=== PATIENT | female | born 1970 | race Two or more races ===

== ENCOUNTER 2016-12-10 13:36 | Outpatient (CLI) | payer BC | END 2016-12-10 23:59 | disposition home or self-care (01) | LOC: RAD 13:36 | PROVIDERS: ATTEND Family Medicine | DX: R20.0 Anesthesia of skin (principal) | CPT/HCPCS: 70450-TC ==

== ENCOUNTER 2017-08-09 14:09 | Outpatient (CLI) | payer BC | END 2017-08-09 23:59 | disposition home or self-care (01) | LOC: LAB 14:09 | PROVIDERS: ATTEND Family Medicine | DX: Z12.4 Encounter for screening for malignant neoplasm of cervix (principal); Z11.3 Encounter for screening for infections with a predominantly sexual mode of transmission | CPT/HCPCS: 36415; 82088; 87491; 87591; 88142 ==

== ENCOUNTER 2018-12-04 09:07 | Outpatient (CLI) | payer BC ==
[2018-12-04] MEDS ORDERED: GADODIAMIDE 5 MMOL/10 ML VIAL IJ ONE (09:08)
== END 2018-12-04 23:59 | disposition home or self-care (01) ==
LOC: MRI 09:07
PROVIDERS: ATTEND Family Medicine
DX: D32.0 Benign neoplasm of cerebral meninges (principal); R20.9 Unspecified disturbances of skin sensation
CPT/HCPCS: 70553-TC; A9579

== ENCOUNTER 2019-10-21 10:52 | Outpatient (CLI) | payer BC ==
[2019-10-21] MEDS ORDERED: GADOTERIDOL 279.3 MG/ML VIAL IV ONE (10:53)
[2019-10-21 14:37] LABS: CREATININE 0.8 mg/dL (0.6-1.3)
== END 2019-10-21 23:59 | disposition home or self-care (01) ==
LOC: MRI 10:52
PROVIDERS: ATTEND Family Medicine
DX: R29.6 Repeated falls (principal); G93.9 Disorder of brain, unspecified
CPT/HCPCS: 36415; 70553-TC; 72148-TC; 82565-TC; 84520-TC; A9579

== ENCOUNTER 2020-03-28 11:09 | Outpatient (CLI) | payer BC ==
[2020-03-28 12:55] LABS: ALBUMIN 3.6 g/dL (3.4-5.0); BILIRUBIN,TOTAL 0.7 mg/dL (0.2-1.0); CALCIUM, SERUM 8.6 mg/dL (8.5-10.1); CREATININE 0.7 mg/dL (0.6-1.3); POTASSIUM 3.3 mmol/L (3.5-5.1); TOTAL PROTEIN, SERUM 7.2 g/dL (6.4-8.2)
[2020-03-28 13:27] LABS: BASOPHILS % (AUTO) 0.8 % (0.0-2.0); HEMATOCRIT 38 % (33-45); HEMOGLOBIN 12.8 g/dL (11.5-14.8); LYMPHOCYTES # (AUTO) 1.4 /CMM (0.8-4.8); LYMPHOCYTES % (AUTO) 27.2 % (20.0-44.0); MEAN CORPUSCULAR HGB CONC 34 g/dl (31.0-36.0); MEAN CORPUSCULAR VOLUME 82 fL (82-100); MONOCYTES # (AUTO) 0.4 /CMM (0.1-1.30); MONOCYTES % (AUTO) 7.4 % (2.0-12.0); NEUTROPHILS # (AUTO) 3.1 /CMM (1.8-8.9); NEUTROPHILS % (AUTO) 60.6 % (43.0-81.0); PLATELET COUNT (AUTO) 260 /CMM (150-450); RED BLOOD CELL COUNT(AUTO) 4.61 MIL/uL (4.0-5.2); WHITE BLOOD COUNT (AUTO) 5.2 K/uL (4.3-11.0)
== END 2020-03-28 23:59 | disposition home or self-care (01) ==
LOC: RAD 11:09
PROVIDERS: ATTEND Family Medicine
DX: R07.1 Chest pain on breathing (principal)
CPT/HCPCS: 36415; 71046; 80053-TC; 84484-TC; 85025-TC; 85378-TC; 93308-TC

== ENCOUNTER 2020-05-30 09:29 | Outpatient (CLI) | payer BC ==
[2020-05-30] MEDS ORDERED: GADOTERIDOL 279.3 MG/ML VIAL IV ONE (09:30)
== END 2020-05-30 23:59 | disposition home or self-care (01) ==
LOC: MRI 09:29
PROVIDERS: ATTEND Family Medicine
DX: R42 Dizziness and giddiness (principal)
CPT/HCPCS: 70553; A9579

== ENCOUNTER 2020-12-09 10:29 | Outpatient (CLI) | payer BC ==
[2020-12-09] MEDS ORDERED: GADOTERATE MEGLUMINE 10 MMOL/20 ML VIAL IV ONE (10:30)
== END 2020-12-09 23:59 | disposition home or self-care (01) ==
LOC: MRI 10:29
PROVIDERS: ATTEND Family Medicine
DX: M47.812 Spondylosis without myelopathy or radiculopathy, cervical region (principal); M50.222 Other cervical disc displacement at C5-C6 level; M43.12 Spondylolisthesis, cervical region; M48.02 Spinal stenosis, cervical region; M25.78 Osteophyte, vertebrae; I67.82 Cerebral ischemia; J32.8 Other chronic sinusitis; G83.22 Monoplegia of upper limb affecting left dominant side
CPT/HCPCS: 70553; 72141; A9575